=== PATIENT | female | born 1955 | race African-American/Black ===

== ENCOUNTER 2016-06-17 11:53 | Emergency (ER) | payer OTHER ==
--- NOTE | ~2016-06-17 | CR229 ---
[facility] A Service of [facility] RADIOLOGY TEXT RESULTS PATIENT: MOISÉS UNDERWOOD LOCATION: [facility] : 53 UNIT #: [id number] AGE: [address]: Sam Gant MD SEX: F ORDER DR: [id number] [facility] [address] [place], [place] [address] [id number] E MR#: [id number] Acc #: [id number] NAME: MOISÉS UNDERWOOD : 1955 SEX: F STUDY DATE/TIME: 06/17/2016 12:36 UNIT: MICHAEL ROOM: STUDY DESCRIPTION: CR Shoulder Min 2 View Lt Attending Physician: Sam Gant M.D. Ordering Physician: Sam Gant M.D. Primary Care Physician: Marshall Landin M.D. MEDICAL IMAGING REPORT This report is preliminary unless electronic signature is present EXAM Left shoulder, 3 views. INDICATION Left shoulder pain for 3 days. No known injury. COMPARISON No comparisons. FINDINGS There is no evidence of dislocation or acute fracture. There is some narrowing of the subacromial space. IMPRESSION No fracture or dislocation. Dictated by... Montana Goncalves M.D. THIS IS AN ELECTRONICALLY VERIFIED REPORT Montana Goncalves M.D. at 06/18/2016 3:48 PM VINNY/jean-paul TD: 06/17/2016 23:49 JOB #: [id number] MEDICAL IMAGING REPORT Page 1 of 1 COPY
--- NOTE | ~2016-06-17 | EKG ---
PATIENT: MOISÉS UNDERWOOD UNIT #: [id number] Ventricular Rate: 84 BPM Atrial Rate: 84 BPM P-R Interval: 150 ms QRS Duration: 76 ms Q-T Interval: 380 ms QTC Calculation(Bezet): 449 ms P [place]: 50 degrees Calculated R [place]: 1 degrees Calculated T [place]: 49 degrees Diagnosis Line: Normal sinus rhythm Diagnosis Line: Voltage criteria for left ventricular hypertrophy Diagnosis Line: Nonspecific T wave abnormality Diagnosis Line: Abnormal ECG Diagnosis Line: No previous ECGs available Diagnosis Line: Confirmed by MEI ROCK MD ([id number]) on Diagnosis Line: 06/19/2016 8:35:42 AM INTERPRETING MD: SHWETA CHO
== END 2016-06-17 14:20 | disposition home or self-care (01) ==
LOC: CED 11:53
DX: S43.402A Unspecified sprain of left shoulder joint, initial encounter (principal); E11.9 Type 2 diabetes mellitus without complications; I10 Essential (primary) hypertension; X58.XXXA Exposure to other specified factors, initial encounter
CPT/HCPCS: 73030; 93005; 99283